=== PATIENT | female | born 1955 | race Caucasian/White ===

== ENCOUNTER 2018-05-31 11:28 | Day surgery (SDC) | payer BC ==
[~2018-05-31 11:28] MED LIST: Lactated Ringers 1,000 ML IV SCH; Sodium Chloride 0.9% 10 ML Syringe FLUSH PRN; Sodium Chloride 0.9% 2.5 ML Syringe FLUSH PRN
[2018-05-31] MEDS ORDERED: Lidocaine 2% 5 ML SDV ONE (12:32)
[2018-05-31] MEDS ORDERED: fentaNYL 100 MCG/2 ML SDV ONE (12:33)
[2018-05-31] MEDS ORDERED: Midazolam 1 MG/ML 2 ML SDV ONE (12:33)
[2018-05-31] MEDS ORDERED: Propofol 200 MG/20 ML SDV ONE ×2 (12:33→14:06)
--- NOTE | 2018-05-31 12:52 | PCM.PREANE ---
Preanesthetic Assessment - Procedure Proposed Procedure: Colonoscopy - Anesthesia/Transfusion/Family Hx Anesthesia History: Prior Anesthesia Reaction Family History of Anesthesia Reaction: No Transfusion History: No Prior Transfusion(s) Intubation History: Unknown Additional History: Past hx of DVT/PE and developed allergy to heparin used. - Review of Systems General: No Symptoms Pulmonary: No Symptoms, Other (hx of sarcoidosis) Cardiovascular: Other Gastrointestinal: Other (incomplete colonoscopy few years ago) Other: Reports: None - Physical Assessment NPO Status Date: 05/30/18 NPO Status Time: 22:00 O2 Sat by Pulse Oximetry: 94 Respiratory Rate: 16 Vital Signs: Last Vital Signs Temp 97.3 F 05/31/18 12:18 Pulse 85 05/31/18 12:18 Resp 16 05/31/18 12:18 BP 122/82 05/31/18 12:18 Pulse Ox 94 L 05/31/18 12:18 Height: 5 ft 7 in Weight: 274 lb ASA Class: 2 Mental Status: Alert & Oriented x3 Airway Class: Mallampati = 3 (affected by cooperation) Dentition: Reports: Normal Dentition Thyro-Mental Finger Breadths: 3 Mouth Opening Finger Breadths: 3 ROM/Head Extension: Limited/Partial (short neck) Lungs: Clear to Auscultation, Normal Respiratory Effort Cardiovascular: Regular Rate, Regular Rhythm, No Murmurs - Allergies Allergies/Adverse Reactions: Allergies Allergy/AdvReac Type Severity Reaction Status Date / Time heparin Allergy Hives Verified 05/26/18 14:22 bronchial dilator Allergy Cardiac Uncoded 05/26/18 14:22 Arrest - Blood Blood Available: No Product(s) Available: None - Anesthesia Plan Pre-Op Medication Ordered: None - Acknowledgements Anesthesia Type Planned: MAC Pt an Appropriate Candidate for the Planned Anesthesia: Yes Alternatives and Risks of Anesthesia Discussed w Pt/Guardian: Yes Pt/Guardian Understands and Agrees with Anesthesia Plan: Yes PreAnesthesia Questionnaire HEENT History: Reports: Allergic Rhinitis, Other (See Below) Other HEENT History: wears glasses Cardiovascular History: Reports: Blood Clots/VTE/DVT, Other (See Below) Other Cardiovascular History: hx of rheumatic fever, hx of DVT and PE during - took heparin for 2 years Respiratory History: Reports: Sleep Apnea, Other (See Below) Other Respiratory History: hx of Sarcoidosis- in remission- has "shadowing" on chest xray, possibly scar tissue hx of sleep apnea- occasionally uses CPAP Gastrointestinal History: Reports: GERD, Hiatal Hernia [employer] OPERATOR History: Reports: Neurological History: Reports: Migraines Psychiatric History: Reports: Anxiety, Depression Endocrine/Metabolic History: Reports: Obesity/BMI 30+, Other (See Below) Other Endocrine/Metabolic History: hx of hypoglycemia- takes metformin to stabilize blood sugar Hematologic History: Reports: Anemia, Other (See Below) Other Hematologic History: hx of Thalassemia minor - Past Surgical History HEENT Surgical History: Reports: Eye Surgery Other HEENT Surgeries/Procedures: strabismus surgery x5 GI Surgical History: Reports: Appendectomy, Colonoscopy Female Surgical History: Reports: Other (See Below) Other Female Surgeries/Procedures: laparoscopy for removal of ovarian cyst Musculoskeletal Surgical History: Reports: Arthroscopic Knee, Other (See Below) Other Musculoskeletal Surgeries/Procedures:: hx of subclavicular bx - SUBSTANCE USE Smoking Status *Q: Former Smoker Tobacco Use Within Last Twelve Months: No Recreational Drug Use History: No - HOME MEDS Home Medications: Home Meds Furosemide 20 mg PO DAILY 05/26/18 [History] Hydrochlorothiazide [Microzide] 12.5 mg PO DAILY 05/26/18 [History] buPROPion HCl [Wellbutrin Xl] 300 mg PO DAILY 05/26/18 [History] metFORMIN HCl [Metformin HCl ER] 500 mg PO BIDMEALS 05/26/18 [History] - CURRENT (IN HOUSE) MEDS Current Meds: Current Medications Lactated Ringer's (Ringers, Lactated) 1,000 mls @ 125 mls/hr IV ASDIRECTED [facility] Last Admin: 05/31/18 12:23 Dose: 125 mls/hr Sodium Chloride (Saline Flush) 10 ml FLUSH ASDIRECTED PRN PRN Reason: Keep Vein Open Sodium Chloride (Saline Flush) 2.5 ml FLUSH ASDIRECTED PRN PRN Reason: Keep Vein Open Sodium Chloride (Saline Flush) 10 ml FLUSH ASDIRECTED PRN PRN Reason: Keep Vein Open Sodium Chloride (Saline Flush) 2.5 ml FLUSH ASDIRECTED PRN PRN Reason: Keep Vein Open Discontinued Medications Fentanyl (Sublimaze) Confirm Administered Dose 100 mcg .ROUTE .STK-MED ONE Stop: 05/31/18 12:34 Lidocaine (Xylocaine-Mpf 2%) Confirm Administered Dose 10 ml .ROUTE .STK-MED ONE Stop: 05/31/18 12:33 Midazolam HCl (Versed 1 Mg/Ml) Confirm Administered Dose 2 mg .ROUTE .STK-MED ONE Stop: 05/31/18 12:34 Propofol (Diprivan 20 Ml) Confirm Administered Dose 400 mg .ROUTE .STK-MED ONE Stop: 05/31/18 12:34
--- NOTE | 2018-05-31 14:17 | PCM.OPNOTE ---
- General Post-Op/Procedure Note Date of Surgery/Procedure: 05/31/18 Operative Procedure(s): colonoscopy Findings: fair to poor prep. normal colonoscopy Pre Op Diagnosis: history of colon polyps Post-Op Diagnosis: same Anesthesia Technique: MAC Primary Surgeon: Lindsay Benitez Condition: Good
--- NOTE | 2018-05-31 14:27 | PCM.POSTAN ---
POST ANESTHESIA ASSESSMENT - MENTAL STATUS Mental Status: Alert - RESPIRATORY Respiratory Status: Respiratory Rate WNL - CARDIOVASCULAR CV Status: Pulse Rate WNL - GASTROINTESTINAL GI Status: No Symptoms - POST OP HYDRATION Hydration Status: Adequate & Stable
--- NOTE | 2018-05-31 14:30 | PCM48HPAN ---
Post Anesthesia Note - EVALUATION WITHIN 48HRS OF ANESTHETIC Vital Signs in Normal Range: Yes Patient Participated in Evaluation: Yes Respiratory Function Stable: Yes Airway Patent: Yes Cardiovascular Function Stable: Yes Hydration Status Stable: Yes Pain Control Satisfactory: Yes Nausea and Vomiting Control Satisfactory: Yes Mental Status Recovered: Yes Resp Rate: 17
--- NOTE | 2018-06-01 08:52 | OR ---
SURGEON: JOSE LUIS ALAS MD DATE OF PROCEDURE: 05/31/2018 PREOPERATIVE DIAGNOSIS: History of colon polyps. POSTOPERATIVE DIAGNOSIS: History of colon polyps. PROCEDURE PERFORMED: Diagnostic colonoscopy. ANESTHESIA: MAC. INSTRUMENT USED: Olympus colonoscope. EXTENT OF EXAM: To the cecum. PREPARATION: Fair to poor. LIMITATIONS: Liquid stool in colon. INDICATIONS: The patient is a 62-year-old female, who underwent a screening colonoscopy last year. This was limited by a poor prep. Her previous endoscopist recommended a 1-year followup because 3 tubular adenomas were found within the colon. The patient and I discussed the need for repeat colonoscopy. I placed her on a 2- day prep. We discussed the procedure, expected perioperative course, and risks including bleeding, infection, or damage to surrounding structures including perforation. The patient verbalized understanding and wishes to proceed. PROCEDURE IN DETAIL: The patient was brought to the endoscopy suite and placed in the left lateral decubitus position. A time-out was completed verifying the patient's name, age, date of , allergies, and procedure to be performed. Monitored anesthesia care was induced, and continuous oxygen was provided via nasal cannula throughout the procedure. After adequate sedation was achieved, a digital rectal exam was performed. This exam was within normal limits. A well- lubricated colonoscope was inserted in the rectum and advanced under direct visualization to the level of the cecum. This was somewhat difficult, given that the patient had a large amount of brown liquid stool within the colon. The cecum was identified by both visual and anatomic landmarks. A photograph was taken of the cecal cap; however, I was unable to retroflex the scope safely within the cecum. The scope was then fully withdrawn while examining the color, texture, anatomy, and integrity of the mucosa from the cecum to the anal canal. A large amount of irrigation was used to clear the liquid stool from the patient's colon. She is noted to have nut seeds and vegetable matter within the stool. After copious amounts of irrigation, I was able to adequately visualize the majority of the colonic wall. There was no evidence of any pathology. The scope was brought into the rectum and retroflexed to allow visualization of the anal canal opening. This appeared normal, and a photograph was taken. The scope was then straightened out and fully withdrawn. The cecum to anus time was 7 minutes. The patient tolerated the procedure well and was transferred to the PACU in stable condition. ENDOSCOPIC DIAGNOSIS: Normal colonoscopy. RECOMMENDATIONS: Overall, the patient's prep was fair to poor. However, I was able to irrigate enough to get good visualization of the majority of the colon. I will have the patient follow up in clinic in 5 years for repeat colonoscopy. She will have to undergo a 2-day colonic prep again with diet modification the week before her next colonoscopy. NELSON KENT /[id number]
== END 2018-05-31 15:10 | disposition home or self-care (01) ==
LOC: MW.SDS 11:28
PROVIDERS: ATTEND Surgery
DX: Z09 Encounter for follow-up examination after completed treatment for conditions other than malignant neoplasm (principal); K21.9 Gastro-esophageal reflux disease without esophagitis; E66.01 Morbid (severe) obesity due to excess calories; Z68.41 Body mass index [BMI] 40.0-44.9, adult; F32.9 Major depressive disorder, single episode, unspecified; Z86.010 Personal history of colon polyps; Z87.891 Personal history of nicotine dependence; Z79.84 Long term (current) use of oral hypoglycemic drugs; Z79.899 Other long term (current) drug therapy; G47.30 Sleep apnea, unspecified; Z88.8 Allergy status to other drugs, medicaments and biological substances
CPT/HCPCS: 45378; J2250; J2704; J3010; J7120

== ENCOUNTER 2020-07-04 19:54 | Emergency (ER) | payer BC ==
--- NOTE | 2020-07-04 20:17 | EDM.PDOC ---
ED HPI GENERAL MEDICAL PROBLEM - General Stated Complaint: SUTURES REMOVAL Time Seen by Provider: 07/04/20 20:14 - History of Present Illness INITIAL COMMENTS - FREE TEXT/NARRATIVE: 64-year-old female who had a mechanical trip and fall at a horse show 5 days ago sustained a laceration to the lateral left eyebrow presented at [facility] CT scan of the brain was negative tetanus was within the last 10 years no fevers no chills patient otherwise feels well. - Related Data Allergies Allergy/AdvReac Type Severity Reaction Status Date / Time heparin Allergy Hives Verified 05/26/18 14:22 bronchial dilator Allergy Cardiac Uncoded 05/26/18 14:22 Arrest Home Meds: Home Meds Furosemide 20 mg PO DAILY 05/26/18 [History] buPROPion HCL [Wellbutrin Xl] 300 mg PO DAILY 05/26/18 [History] hydroCHLOROthiazide [Microzide] 12.5 mg PO DAILY 05/26/18 [History] metFORMIN HCl [Metformin ER Osmotic] 500 mg PO BIDMEALS 05/26/18 [History] Past Medical History HEENT History: Reports: Allergic Rhinitis, Other (See Below) Other HEENT History: wears glasses Cardiovascular History: Reports: Blood Clots/VTE/DVT, Other (See Below) Other Cardiovascular History: hx of rheumatic fever, hx of DVT and PE during - took heparin for 2 years Respiratory History: Reports: Sleep Apnea, Other (See Below) Other Respiratory History: hx of Sarcoidosis- in remission- has "shadowing" on chest xray, possibly scar tissue hx of sleep apnea- occasionally uses CPAP Gastrointestinal History: Reports: GERD, Hiatal Hernia [employer]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: Neurological History: Reports: Migraines Psychiatric History: Reports: Anxiety, Depression Endocrine/Metabolic History: Reports: Obesity/BMI 30+, Other (See Below) Other Endocrine/Metabolic History: hx of hypoglycemia- takes metformin to stabilize blood sugar Hematologic History: Reports: Anemia, Other (See Below) Other Hematologic History: hx of Thalassemia minor - Past Surgical History HEENT Surgical History: Reports: Eye Surgery Other HEENT Surgeries/Procedures: strabismus surgery x5 GI Surgical History: Reports: Appendectomy, Colonoscopy Female Surgical History: Reports: Other (See Below) Other Female Surgeries/Procedures: laparoscopy for removal of ovarian cyst Musculoskeletal Surgical History: Reports: Arthroscopic Knee, Other (See Below) Other Musculoskeletal Surgeries/Procedures:: hx of subclavicular bx ED ROS GENERAL - Review of Systems Review Of Systems: See Below Free Text/Narrative/Comment: General: No fever. Skin: Per HPI Neurologic: No headache. ED EXAM, GENERAL - Physical Exam Exam: See Below Free Text/Narrative:: General Appearance: No acute distress, appears comfortable Skin: Well approximated well-healed linear laceration just superior to the lateral portion of the left eyebrow that is been closed with six 6-0 Prolene sutures no swelling no erythema no drainage no signs of infection HEENT: Normocephalic/atraumatic, sclera anicteric, mucous membranes moist Neck: Normal range of motion Psychiatric: Appropriate, cooperative Departure - Departure Time of Disposition: 20:16 Disposition: Home, Self-Care 01 Condition: Good Clinical Impression: Visit for suture removal - Discharge Information *PRESCRIPTION DRUG MONITORING PROGRAM REVIEWED*: Not Applicable *COPY OF PRESCRIPTION DRUG MONITORING REPORT IN PATIENT GABO: Not Applicable Instructions: Suture Removal, Care After Additional Instructions: The following information is given to patients seen in the emergency department who are being discharged to home. This information is to outline your options for follow-up care. We provide all patients seen in our emergency department with a follow-up referral. The need for follow-up, as well as the timing and circumstances, are variable depending upon the specifics of your emergency department visit. If you don't have a primary care physician on staff, we will provide you with a referral. We always advise you to contact your personal physician following an emergency department visit to inform them of the circumstance of the visit and for follow-up with them and/or the need for any referrals to a consulting specialist. The emergency department will also refer you to a specialist when appropriate. This referral assures that you have the opportunity for follow-up care with a specialist. All of these measure are taken in an effort to provide you with optimal care, which includes your follow-up. Under all circumstances we always encourage you to contact your private physician who remains a resource for coordinating your care. When calling for follow-up care, please make the office aware that this follow-up is from your recent emergency room visit. If for any reason you are refused follow-up, please contact the [facility] Department at and asked to speak to the emergency department charge nurse. - Assessment/Plan Assessment:: 64-year-old female presenting at the appropriate time for suture removal wound without signs of infection sutures to be removed by nursing.
== END 2020-07-04 20:33 | disposition home or self-care (01) ==
LOC: MW.ED 19:54
DX: S01.112D Laceration without foreign body of left eyelid and periocular area, subsequent encounter (principal); E66.9 Obesity, unspecified; F32.9 Major depressive disorder, single episode, unspecified; Z79.84 Long term (current) use of oral hypoglycemic drugs; Z79.899 Other long term (current) drug therapy; Z88.8 Allergy status to other drugs, medicaments and biological substances; Z68.41 Body mass index [BMI] 40.0-44.9, adult; W01.0XXD Fall on same level from slipping, tripping and stumbling without subsequent striking against object, subsequent encounter
CPT/HCPCS: 99281

== ENCOUNTER 2021-01-27 02:37 | Emergency (ER) | payer BC ==
[2021-01-27] MEDS ORDERED: Ondansetron 4 MG/2 ML SDV IVPUSH ONE (03:25)
[2021-01-27] MEDS ORDERED: Sodium Chloride 0.9% 2.5 ML Syringe FLUSH PRN (03:25)
[2021-01-27] MEDS ORDERED: Sodium Chloride 0.9% 10 ML Syringe FLUSH PRN (03:25)
[2021-01-27] MEDS ORDERED: fentaNYL 50 MCG/ML SDV IVPUSH ONE (03:25)
[2021-01-27] MEDS ORDERED: Sodium Chloride 0.9% 1,000 ML IV ONE (03:25)
[2021-01-27] MEDS ORDERED: Magnesium Citrate Solution 296 ML Bottle PO ONE (03:26)
[2021-01-27] MEDS ORDERED: Bisacodyl 10 MG Supp RECTAL STA (03:26)
[2021-01-27] MEDS ORDERED: Bisacodyl 5 MG Tab PO ONE (03:27)
[2021-01-27 03:30] LABS: CARBON DIOXIDE,CO2 27.7 mmol/L (21.0-32.0); POTASSIUM,K 4.4 mmol/L (3.5-5.1)
[2021-01-27 03:43] LABS: LIPASE 204 U/L (73-393)
--- NOTE | 2021-01-27 04:46 | CT ---
INDICATION: Left upper quadrant pain. COMPARISON: CT of the abdomen and pelvis without contrast from 09/24/2017 TECHNIQUE: CT examination of the abdomen and pelvis was performed without contrast enhancement using 3 mm thick axial sections from the lung bases through the pubic symphysis. Oral contrast was not administered. Please note that all CT scans at this facility use dose modulation, iterative reconstruction, and/or weight-based dosing when appropriate to reduce radiation dose to as low as reasonably achievable. FINDINGS: In the abdomen, the unenhanced liver shows no change in a tiny calcified granuloma in the right lobe and is otherwise normal in appearance. The previously seen mild fatty infiltration is no longer evident. The spleen, pancreas, and adrenals are normal in appearance. The unenhanced kidneys are normal in appearance. The gallbladder is normal in appearance. The abdominal aorta is normal in caliber with no sign of dilatation. There is no sign of retroperitoneal mass or adenopathy. The stomach, loops of small bowel, and colon in the abdomen are normal in appearance. Again seen is a stable small fat containing periumbilical hernia. In the pelvis, the appendix is nonvisualized, but there is no sign of an inflammatory process in the area of the appendix. The loops of small bowel and colon in the pelvis are normal in appearance. The uterus and adnexal regions are normal in appearance. The urinary bladder is normal in appearance. There is no sign of pelvic or inguinal mass or adenopathy. There is no sign of free air or free fluid in the abdomen or pelvis. The lung bases are clear. There are moderate L1 and mild T12 compression fractures. The L1 compression fracture is unchanged. The T12 compression fracture is new. There are stable moderate endplate fractures adjacent to the T12-L1 disc space. There is moderate L1-2 and L2-3 disc degenerative disease. There is mild scoliosis of the thoracolumbar spine convex towards the left. IMPRESSION: Nothing seen to explain the patient`s left upper quadrant pain. Normal appearance of the stomach, pancreas, and left urinary system. CT of the abdomen shows resolution of previously seen mild fatty infiltration of the liver. Normal CT of the pelvis without contrast. Please note that all CT scans at this facility use dose modulation, iterative reconstruction, and/or weight-based dosing when appropriate to reduce radiation dose to as low as reasonably achievable. Dictated by Jeronimo Marti MD @ Jan 27 2021 4:35AM Signed by Dr. Jeronimo Marti @ Jan 27 2021 4:43AM
--- NOTE | 2021-01-27 05:06 | EDM.PDOC ---
ED HPI GENERAL MEDICAL PROBLEM - General Chief Complaint: Abdominal Pain Stated Complaint: SEVERE ABDOMINAL PAIN Time Seen by Provider: 01/27/21 02:50 - History of Present Illness INITIAL COMMENTS - FREE TEXT/NARRATIVE: HISTORY AND PHYSICAL: History of present illness: This is a 65-year-old female with a history significant for sarcoidosis who presents ER today secondary to severe left upper quadrant abdominal discomfort that started earlier this evening. Patient reports that she has not had a bowel movement in approximately 10 days except for a small pellet that came out earlier today. Patient denies any recent fevers, shakes, chills. Patient reports nausea with no vomiting or diarrhea. Patient denies any dysuria, frequency, urgency. Patient has any chest pain or shortness of breath. Patient reports normal p.o. intake. Patient reports she is taken 1 bottle of magnesium citrate at home without any BM. Patient reports that she feels her discomfort she is experiencing secondary to constipation. Review of systems: As per history of present illness and below otherwise all systems reviewed and negative. Past medical history: As per history of present illness and as reviewed below otherwise noncontributor y. Surgical history: As per history of present illness and as reviewed below otherwise noncontributory. Social history: No reported history of drug or alcohol abuse. Family history: As per history of present illness and as reviewed below otherwise noncontributory. Physical exam: This patient was seen and evaluated during the 2019 SARS-CoV-2 novel coronavirus pandemic period. Community viral transmission is ongoing at time of this encounter and the emergency department is operating under pandemic response procedures. Constitutional: Patient is oriented to person, place, and time. Appears well- developed and well-nourished. No distress. HEENT: Moist mucous membranes Head: Normocephalic and atraumatic Eyes: Right eye exhibits no discharge. Left eye exhibits no discharge. No sc leral icterus Neck: Normal range of motion. No tracheal deviation present. Cardiovascular: Normal rate and regular rhythm. Pulmonary: Effort normal, no respiratory distress. Abd: Soft, nondistended, no rebound/guarding, no psoas or obturator signs, no tenderness at Mcberney's point, no Nelson's sign. Pt does not present with an exam that would be consistent with an acute surgical abdomen at this time, tenderness palpation midepigastric and left upper quadrant. Musculoskeletal: Normal range of motion Neurologic: Alert and oriented to person, place and time. Skin: [place], warm and dry. Psychiatric: Normal mood and affect. Behavior is normal. Judgment and thought content normal. Nursing note and vital signs have been reviewed Diagnostics: CBC, CMP within normal limits. CT abdomen pelvis reveals no significant abnormalities to explain her discomfort. Therapeutics: NSS x1 L Zofran 4 mg IV, fentanyl IV Dulcolax suppository/Dulcolax p.o./mag citrate 1 bottle Assessment and plan: This is a 65-year-old female who presents ER today complaining of abdominal pain greatest in the upper quadrants left greater than right. Patient denies any recent fevers, shakes, chills. During the course of the patient's evaluation for abdominal pain, kidney stone, pancreatitis, cholecystitis, diverticulitis, abdominal aortic aneurysm, myocardial infarction, ischemic bowel, ruptured pepti c ulcer, ruptured viscus, UTI,and appendicitis as well as other causes of abdominal pain have been considered. Patient CT scan has been unremarkable. Patient's labs have been unremarkable. Patient has been given cathartics without significant bowel movement. After receiving the fentanyl and Zofran patient does look much better and she reports her pain is significantly improved. Etiology of the patient's pain is unclear however at this time she does not present with signs that would be consistent with an acute surgical abdomen. Patient will be discharged home with instructions to follow-up with her PCP in the next 1 to 2 days. Reassessment at the time of disposition demonstrates that the patient is in no acute distress. The patient has remained stable throughout the entire ED visit and is without objective evidence for acute process requiring urgent intervention or hospitalization. The patient is stable for discharge, counseling is provided as documented above, discussed symptomatic treatment and specific conditions for return. I have spoken with the patient/caregiver and discussed todays findings, in addition to providing specific details for the plan of care. Questions are answered and there is agreement with the plan. Definitive disposition and diagnosis as appropriate pending reevaluation and review of above. left abdomen Pain Score (Numeric/FACES): 9 - Related Data Allergies Allergy/AdvReac Type Severity Reaction Status Date / Time heparin Allergy Hives Verified 01/27/21 02:48 bronchial dilator Allergy Cardiac Uncoded 01/27/21 02:48 Arrest Home Meds: Home Meds Furosemide 20 mg PO DAILY 05/26/18 [History] buPROPion HCL [Wellbutrin Xl] 300 mg PO DAILY 05/26/18 [History] hydroCHLOROthiazide [Microzide] 12.5 mg PO DAILY 05/26/18 [History] Naproxen [Naprosyn] 500 mg PO Q12HR PRN #30 tab 01/27/21 [Rx] Past Medical History HEENT History: Reports: Allergic Rhinitis, Other (See Below) Other HEENT History: wears glasses Cardiovascular History: Reports: Blood Clots/VTE/DVT, Other (See Below) Other Cardiovascular History: hx of rheumatic fever, hx of DVT and PE during - took heparin for 2 years Respiratory History: Reports: Sleep Apnea, Other (See Below) Other Respiratory History: hx of Sarcoidosis- in remission- has "shadowing" on chest xray, possibly scar tissue hx of sleep apnea- occasionally uses CPAP Gastrointestinal History: Reports: GERD, Hiatal Hernia [employer] History: Reports: Neurological History: Reports: Migraines Psychiatric History: Reports: Anxiety, Depression Endocrine/Metabolic History: Reports: Obesity/BMI 30+, Other (See Below) Other Endocrine/Metabolic History: hx of hypoglycemia- takes metformin to stabilize blood sugar Hematologic History: Reports: Anemia, Other (See Below) Other Hematologic History: hx of Thalassemia minor - Infectious Disease History Infectious Disease History: Reports: Chicken Pox - Past Surgical History HEENT Surgical History: Reports: Eye Surgery Other HEENT Surgeries/Procedures: strabismus surgery x5 GI Surgical History: Reports: Appendectomy, Colonoscopy Female Surgical History: Reports: Other (See Below) Other Female Surgeries/Procedures: laparoscopy for removal of ovarian cyst Musculoskeletal Surgical History: Reports: Arthroscopic Knee, Other (See Below) Other Musculoskeletal Surgeries/Procedures:: hx of subclavicular bx Social & Family History - Tobacco Use Tobacco Use Status *Q: Never Tobacco User - Recreational Drug Use Recreational Drug Use: No ED ROS GENERAL - Review of Systems Review Of Systems: See Below ED EXAM, GENERAL - Physical Exam Exam: See Below Course - Vital Signs Last Recorded V/S: Last Vital Signs Temp 97.3 F 01/27/21 06:48 Pulse 82 01/27/21 06:48 Resp 19 01/27/21 02:48 BP 175/83 H 01/27/21 06:48 Pulse Ox 97 01/27/21 06:48 - Orders/Labs/Meds Orders: Active Orders 24 hr Category Date Time Status Saline Lock Insert [OM.PC] Stat Oth 01/27/21 03:25 Ordered Labs: Laboratory Tests 01/27/21 01/27/21 01/27/21 Range/Units 02:54 02:54 02:54 WBC 6.96 (4.0-11.0) K/uL RBC 5.17 (4.30-5.90) M/uL Hgb 13.4 (12.0-16.0) g/dL Hct 42.0 (36.0-46.0) % MCV 81.2 (80.0-98.0) fL MCH 25.9 L (27.0-32.0) pg MCHC 31.9 (31.0-37.0) g/dL RDW Std Deviation 43.6 (28.0-62.0) fl RDW Coeff of Justin 15 (11.0-15.0) % Plt Count 330 (150-400) K/uL MPV 9.70 (7.40-12.00) fL Neut % (Auto) 51.1 (48.0-80.0) % Lymph % (Auto) 32.5 (16.0-40.0) % Jay % (Auto) 12.6 (0.0-15.0) % Eos % (Auto) 3.4 (0.0-7.0) % Baso % (Auto) 0.4 (0.0-1.5) % Neut # (Auto) 3.6 (1.4-5.7) K/uL Lymph # (Auto) 2.3 (0.6-2.4) K/uL Jay # (Auto) 0.9 H (0.0-0.8) K/uL Eos # (Auto) 0.2 (0.0-0.7) K/uL Baso # (Auto) 0.0 (0.0-0.1) K/uL Nucleated RBC % 0.0 /100WBC Nucleated RBCs # 0 K/uL Sodium 138 (136-145) mmol/L Potassium 4.4 (3.5-5.1) mmol/L Chloride 103 (98-107) mmol/L Carbon Dioxide 27.7 (21.0-32.0) mmol/L BUN 16 (7.0-18.0) mg/dL Creatinine 1.1 H (0.6-1.0) mg/dL Est Cr Clr Drug Dosing 50.24 mL/min Estimated GFR (MDRD) 50.0 ml/min Glucose 116 H (74-106) mg/dL Calcium 8.3 L (8.5-10.1) mg/dL Total Bilirubin 0.2 (0.2-1.0) mg/dL AST 19 (15-37) IU/L ALT 26 (14-63) IU/L Alkaline Phosphatase 104 (46-116) U/L Troponin I < 0.050 (0.000-0.056) ng/mL Total Protein 6.7 (6.4-8.2) g/dL Albumin 3.3 L (3.4-5.0) g/dL Globulin 3.4 (2.6-4.0) g/dL Albumin/Globulin Ratio 1.0 (0.9-1.6) Lipase 204 (73-393) U/L Urine Color Urine Appearance Urine pH (5.0-8.0) Ur Specific [place] (1.001-1.035) Urine Protein (NEGATIVE) mg/dL Urine Glucose (UA) (NEGATIVE) mg/dL Urine Ketones (NEGATIVE) mg/dL Urine Occult Blood (NEGATIVE) Urine Nitrite (NEGATIVE) Urine Bilirubin (NEGATIVE) Urine Urobilinogen (<2.0) EU/dL Ur Leukocyte Esterase (NEGATIVE) Urine RBC (0-2/HPF) Urine WBC (0-5/HPF) Ur Epithelial Cells (NONE-FEW) Urine Bacteria (NEGATIVE) 01/27/21 Range/Units 05:20 WBC (4.0-11.0) K/uL RBC (4.30-5.90) M/uL Hgb (12.0-16.0) g/dL Hct (36.0-46.0) % MCV (80.0-98.0) fL MCH (27.0-32.0) pg MCHC (31.0-37.0) g/dL RDW Std Deviation (28.0-62.0) fl RDW Coeff of Justin (11.0-15.0) % Plt Count (150-400) K/uL MPV (7.40-12.00) fL Neut % (Auto) (48.0-80.0) % Lymph % (Auto) (16.0-40.0) % Jay % (Auto) (0.0-15.0) % Eos % (Auto) (0.0-7.0) % Baso % (Auto) (0.0-1.5) % Neut # (Auto) (1.4-5.7) K/uL Lymph # (Auto) (0.6-2.4) K/uL Jay # (Auto) (0.0-0.8) K/uL Eos # (Auto) (0.0-0.7) K/uL Baso # (Auto) (0.0-0.1) K/uL Nucleated RBC % /100WBC Nucleated RBCs # K/uL Sodium (136-145) mmol/L Potassium (3.5-5.1) mmol/L Chloride (98-107) mmol/L Carbon Dioxide (21.0-32.0) mmol/L BUN (7.0-18.0) mg/dL Creatinine (0.6-1.0) mg/dL Est Cr Clr Drug Dosing mL/min Estimated GFR (MDRD) ml/min Glucose (74-106) mg/dL Calcium (8.5-10.1) mg/dL Total Bilirubin (0.2-1.0) mg/dL AST (15-37) IU/L ALT (14-63) IU/L Alkaline Phosphatase (46-116) U/L Troponin I (0.000-0.056) ng/mL Total Protein (6.4-8.2) g/dL Albumin (3.4-5.0) g/dL Globulin (2.6-4.0) g/dL Albumin/Globulin Ratio (0.9-1.6) Lipase (73-393) U/L Urine Color YELLOW Urine Appearance SLT CLOUDY Urine pH 5.5 (5.0-8.0) Ur Specific [place] 1.020 (1.001-1.035) Urine Protein NEGATIVE (NEGATIVE) mg/dL Urine Glucose (UA) NEGATIVE (NEGATIVE) mg/dL Urine Ketones NEGATIVE (NEGATIVE) mg/dL Urine Occult Blood NEGATIVE (NEGATIVE) Urine Nitrite NEGATIVE (NEGATIVE) Urine Bilirubin NEGATIVE (NEGATIVE) Urine Urobilinogen 0.2 (<2.0) EU/dL Ur Leukocyte Esterase SMALL H (NEGATIVE) Urine RBC 0-1 (0-2/HPF) Urine WBC 0-2 (0-5/HPF) Ur Epithelial Cells FEW (NONE-FEW) Urine Bacteria FEW (NEGATIVE) Meds: Medications Discontinued Medications Generic Name Dose Route Start Last Admin Trade Name Freq PRN Reason Stop Dose Admin Bisacodyl 20 mg 01/27/21 03:26 01/27/21 04:05 Bisacodyl 10 Mg Supp RECTAL 01/27/21 03:27 20 mg ONETIME STA Administration Bisacodyl 20 mg 01/27/21 03:27 01/27/21 04:07 Bisacodyl 5 Mg Tab PO 01/27/21 03:28 20 mg ONETIME ONE Administration Fentanyl 50 mcg 01/27/21 03:25 01/27/21 04:05 Fentanyl 50 Mcg/Ml Sdv IVPUSH 01/27/21 03:26 50 mcg ONETIME ONE Administration Sodium Chloride 1,000 mls @ 999 mls/hr 01/27/21 03:25 01/27/21 04:06 Normal Saline IV 01/27/21 04:25 999 mls/hr .Bolus ONE Administration Magnesium Citrate 296 ml 01/27/21 03:26 01/27/21 04:05 Magnesium Citrate Solution 296 Ml Bottle PO 01/27/21 03:27 296 ml ONETIME ONE Administration Ondansetron HCl 4 mg 01/27/21 03:25 01/27/21 04:05 Ondansetron 4 Mg/2 Ml Sdv IVPUSH 01/27/21 03:26 4 mg ONETIME ONE Administration Sodium Chloride 10 ml 01/27/21 03:25 01/27/21 04:08 Sodium Chloride 0.9% 10 Ml Syringe FLUSH 10 ml ASDIRECTED PRN Administration Keep Vein Open Sodium Chloride 2.5 ml 01/27/21 03:25 01/27/21 04:08 Sodium Chloride 0.9% 2.5 Ml Syringe FLUSH 2.5 ml ASDIRECTED PRN Administration Keep Vein Open Departure - Departure Time of Disposition: 03:00 Disposition: Home, Self-Care 01 Condition: Good Clinical Impression: Abdominal pain, Constipation - Discharge Information Prescriptions: Naproxen [Naprosyn] 500 mg PO Q12HR PRN #30 tab PRN Reason: Pain Instructions: Chronic Constipation, Abdominal Pain, Adult, [id number] Referrals: Cristina Gant DO [Primary Care Provider] - Forms: ED Department Discharge Additional Instructions: You were seen and evaluated in the ER today secondary to abdominal pain and discomfort. Your labs were all normal. The CT scan of the abdomen pelvis did not reveal any acute pathology. You do look like you have a compression fracture at the level of T12-L1. Please make an appointment to follow-up with your family doctor for reevaluation of your abdominal pain. Please return to the ER if your pain worsens or if you develop any new or conc erning symptoms. You will be given a prescription for Naprosyn to assist with your pain and discomfort. The following information is given to patients seen in the emergency department who are being discharged to home. This information is to outline your options for follow-up care. We provide all patients seen in our emergency department with a follow-up referral. The need for follow-up, as well as the timing and circumstances, are variable depending upon the specifics of your emergency department visit. If you don't have a primary care physician on staff, we will provide you with a referral. We always advise you to contact your personal physician following an emergency department visit to inform them of the circumstance of the visit and for follow-up with them and/or the need for any referrals to a consulting specialist. The emergency department will also refer you to a specialist when appropriate. This referral assures that you have the opportunity for follow-up care with a specialist. All of these measure are taken in an effort to provide you with optimal care, which includes your follow-up. Under all circumstances we always encourage you to contact your private physician who remains a resource for coordinating your care. When calling for follow-up care, please make the office aware that this follow-up is from your recent emergency room visit. If for any reason you are refused follow-up, please contact the [facility] Emergency Department at and asked to speak to the emergency department charge nurse. [facility] [address] [place] [id number] [id number] Sepsis Event Note (ED) - Evaluation Sepsis Screening Result: No Definite Risk - My Orders Last 24 Hours: My Active Orders 01/27/21 03:25 Saline Lock Insert [OM.PC] Stat - Assessment/Plan Last 24 Hours: My Active Orders 01/27/21 03:25 Saline Lock Insert [OM.PC] Stat
== END 2021-01-27 06:48 | disposition home or self-care (01) ==
LOC: MW.ED 02:37
DX: K59.00 Constipation, unspecified (principal); E66.9 Obesity, unspecified; Z68.42 Body mass index [BMI] 45.0-49.9, adult; Z88.8 Allergy status to other drugs, medicaments and biological substances; Z79.899 Other long term (current) drug therapy
CPT/HCPCS: 36415; 74176; 80053; 81001; 83690; 84484; 85025; 96374; 96375; 99284; A9270; J2405; J3010; J7030; 99283

== ENCOUNTER 2021-07-09 19:46 | Emergency (ER) | payer BC ==
[2021-07-09 21:10] LABS: CORONAVIRUS COVID-19 NAA POSITIVE (NEGATIVE); INFLUENZA A NAA NEGATIVE (NEGATIVE); INFLUENZA B NAA NEGATIVE (NEGATIVE)
--- NOTE | 2021-07-09 21:36 | CR ---
HISTORY: Cough. COMPARISON: 09/01/2016. FINDINGS: PA and lateral views of the chest. Stable minimal linear scar atelectasis in the left lung. The lungs are otherwise. No evidence for pneumonia. Heart size and pulmonary vascularity within normal limits. No pleural effusion. Mild degenerative endplate changes are noted in the spine. Dictated by Daphne Hansen MD @ 07/09/2021 9:34:24 PM (Electronically Signed)
--- NOTE | 2021-07-09 21:40 | EDM.PDOC ---
ED HPI GENERAL MEDICAL PROBLEM - General Chief Complaint: Respiratory Problem Stated Complaint: BODY ACHES, FATIGUE, COUGH Time Seen by Provider: 07/09/21 21:18 - History of Present Illness INITIAL COMMENTS - FREE TEXT/NARRATIVE: HISTORY AND PHYSICAL: History of present illness: This is a 65-year-old female with a history significant for sarcoidosis, diabetes, who presents ER today secondary to generalized malaise, weakness, cough, congestion, headache and concerned that she might have coronavirus. Patient is not vaccinated for coronavirus. Patient denies any fevers. Patient has any shortness of breath. Patient reports nausea with no vomiting or diarrhea. Patient denies any dysuria, frequency, urgency. Patient reports that she has occasional white/yellow productive cough. Patient denies any sore throat or ear pain. Patient denies any known Covid exposures. Patient reports that she works in a cubicle by herself with very little exposure to other people. Patient denies any calf tenderness or swelling. Patient denies any lower extremity edema. Patient denies any hemoptysis. Patient denies any pain to her chest. Patient has any chest pressure. Review of systems: As per history of present illness and below otherwise all systems reviewed and negative. Past medical history: As per history of present illness and as reviewed below otherwise noncontributory. Surgical history: As per history of present illness and as reviewed below otherwise noncontributory. Social history: No reported history of drug abuse. Family history: As per history of present illness and as reviewed below otherwise noncontributory. Physical exam: This patient was seen and evaluated during the 2019 SARS-CoV-2 novel coronavirus pandemic period. Community viral transmission is ongoing at time of this encounter and the emergency department is operating under pandemic response procedures. Constitutional: Patient is oriented to person, place, and time. Appears well- developed and well-nourished. No distress. HEENT: Moist mucous membranes Head: Normocephalic and atraumatic Eyes: Right eye exhibits no discharge. Left eye exhibits no discharge. No scleral icterus Neck: Normal range of motion. No tracheal deviation present. Cardiovascular: Normal rate and regular rhythm. No split S2/RV heave. Pulmonary: Effort normal, no respiratory distress. No wheezing rales or rhonchi. Abdominal: No distention Musculoskeletal: Normal range of motion. No calf tenderness. No Homans' sign. Neurologic: Alert and oriented to person, place and time. Skin: [place], warm and dry. Psychiatric: Normal mood and affect. Behavior is normal. Judgment and thought content normal. Nursing note and vital signs have been reviewed Diagnostics: Chest Xray: Normal cardiac silhouette No infiltrates or effusions identified. No PTX No evidence of acute bony fracture. As interpreted by ER MD: Maddi Influenza A/influenza B negative Coronavirus vaccine test was positive Therapeutics: [] Assessment and plan: 65-year-old female who presents ER today secondary to concern that she might have coronavirus given her symptoms of generalized malaise, cough, chills, body aches and headache. Patient's coronavirus test was positive here in the ED. Patient's pulse oximeter was 98% on room air. Patient has a normal-appearing chest. Patient does not appear to be in any respiratory distress. Patient is not vaccinated for coronavirus. Given that the patient has a BMI of 42, diabetes, sarcoidosis, she would meet criteria for Regeneron therapy. I have given the patient information and she is amenable to getting called in the morning and to obtain the Regeneron infusion. Patient was given precautions regarding returning to the ED if she starts having any increasing shortness of breath. Patient was recommended that she obtain a pulse oximeter so that she can keep a closer eye on her oxygen level to return to the ER if it drops below 90%. Reassessment at the time of disposition demonstrates that the patient is in no acute distress. The patient has remained stable throughout the entire ED visit and is without objective evidence for acute process requiring urgent intervention or hospitalization. The patient is stable for discharge, counseling is provided as documented above, discussed symptomatic treatment and specific conditions for return. I have spoken with the patient/caregiver and discussed todays findings, in addition to providing specific details for the plan of care. Questions are answered and there is agreement with the plan. Definitive disposition and diagnosis as appropriate pending reevaluation and review of above. Left Arm Pain Score (Numeric/FACES): 5 - Related Data Allergies Allergy/AdvReac Type Severity Reaction Status Date / Time heparin Allergy Hives Verified 01/27/21 02:48 bronchial dilator Allergy Cardiac Uncoded 01/27/21 02:48 Arrest Home Meds: Home Meds Furosemide 20 mg PO DAILY 05/26/18 [History] buPROPion HCL [Wellbutrin Xl] 300 mg PO DAILY 05/26/18 [History] hydroCHLOROthiazide [Microzide] 12.5 mg PO DAILY 05/26/18 [History] Naproxen [Naprosyn] 500 mg PO Q12HR PRN #30 tab 01/27/21 [Rx] Phentermine HCl 1 tab PO DAILY 07/09/21 [History] metFORMIN [Glucophage] 2 tab PO DAILY 07/09/21 [History] Past Medical History HEENT History: Reports: Allergic Rhinitis, Other (See Below) Other HEENT History: wears glasses Cardiovascular History: Reports: Blood Clots/VTE/DVT, Other (See Below) Other Cardiovascular History: hx of rheumatic fever, hx of DVT and PE during - took heparin for 2 years Respiratory History: Reports: Sleep Apnea, Other (See Below) Other Respiratory History: hx of Sarcoidosis- in remission- has "shadowing" on chest xray, possibly scar tissue hx of sleep apnea- occasionally uses CPAP Gastrointestinal History: Reports: GERD, Hiatal Hernia [employer] History: Reports: Neurological History: Reports: Migraines Psychiatric History: Reports: Anxiety, Depression Endocrine/Metabolic History: Reports: Obesity/BMI 30+, Other (See Below) Other Endocrine/Metabolic History: hx of hypoglycemia- takes metformin to stabilize blood sugar Hematologic History: Reports: Anemia, Other (See Below) Other Hematologic History: hx of Thalassemia minor - Infectious Disease History Infectious Disease History: Reports: Chicken Pox - Past Surgical History HEENT Surgical History: Reports: Eye Surgery Other HEENT Surgeries/Procedures: strabismus surgery x5 GI Surgical History: Reports: Appendectomy, Colonoscopy Female Surgical History: Reports: Other (See Below) Other Female Surgeries/Procedures: laparoscopy for removal of ovarian cyst Musculoskeletal Surgical History: Reports: Arthroscopic Knee, Other (See Below) Other Musculoskeletal Surgeries/Procedures:: hx of subclavicular bx Social & Family History - Tobacco Use Tobacco Use Status *Q: Never Tobacco User - Caffeine Use Caffeine Use: Reports: Soda - Recreational Drug Use Recreational Drug Use: No ED ROS GENERAL - Review of Systems Review Of Systems: See Below ED EXAM, GENERAL - Physical Exam Exam: See Below Course - Vital Signs Last Recorded V/S: Last Vital Signs Temp 97.4 F 07/09/21 20:16 Pulse 84 07/09/21 21:30 Resp 15 07/09/21 20:16 BP 135/80 09/29/21 20:16 Pulse Ox 96 07/09/21 21:30 - Orders/Labs/Meds Orders: Active Orders 24 hr Category Date Time Status Chest 2V [CR] Stat Exams 07/09/21 19:58 Taken Labs: Laboratory Tests 07/09/21 Range/Units 20:24 Influenza Type A RNA NEGATIVE (NEGATIVE) Influenza Type B RNA NEGATIVE (NEGATIVE) SARS-CoV-2 RNA (RA) POSITIVE H (NEGATIVE) Departure - Departure Time of Disposition: 21:38 Disposition: Home, Self-Care 01 Condition: Good Clinical Impression: COVID-19 virus infection - Discharge Information Instructions: What You Should Know About COVID-19 to Protect Yourself and Others - [facility], 10 Things You Can Do to Manage Your COVID-19 Symptoms at Home - [facility] (04/25/2021), COVID-19: What Your Test Results Mean - [facility] (03/09/2020), COVID-19: Quarantine vs. Isolation - [facility] (09/26/2020) Referrals: Cristina Gant DO [Primary Care Provider] - Additional Instructions: You were seen and evaluated in the ER today secondary to signs and symptoms that were concerning for coronavirus infection. Although your influenza tests were negative, your Covid test was positive here in the ED. Fortunately, your chest x-ray looks normal and your oxygen level is excellent. Given your high risk for coronavirus infection, we will recommend that you obtain Regeneron therapy. This is still under emergency use authorization from the government and is not FDA approved however it has been shown to decrease the need for admission for patients who are at high risk who have Covid infection. You will receive a kellee ne call from the hospital likely tomorrow to schedule you for an infusion as an outpatient. Please obtain a pulse oximeter so that he can keep an eye on your oxygen level. If you start having severe shortness of breath or if your oxygen level should drop below 90%, please return to the ED to be reevaluated. 1. Your COVID-19 screening is positive. That means you do have the coronavirus and you are considered contagious. Your vital signs and oxygen saturation are well enough that you were able to monitor your symptoms at home. Continue to monitor for trouble breathing, new confusion or inability to arouse, bluish lips or face or any of the other symptoms we discussed -if this occurs please return to the emergency room. 2. Please self quarantine over the next 10 days. Inform any persons that you have been in contact with since you started becoming symptomatic that you have tested positive; they should be made aware and take the appropriate steps as needed. 3. You can take NyQuil during the evening to help get a restful night sleep. May alternate Tylenol and ibuprofen as needed for pain and fever management. 4. The [facility] department will be calling you and following up with you. The [place] [facility] Hotline phone number , They are open Wednesday - Wednesday 7am - 7pm. Follow up with your primary care provider for re-evaluation and re-testing after the 10 day quarantine and discuss when you should be seen. The following information is given to patients seen in the emergency department who are being discharged to home. This information is to outline your options for follow-up care. We provide all patients seen in our emergency department with a follow-up referral. The need for follow-up, as well as the timing and circumstances, are variable depending upon the specifics of your emergency department visit. If you don't have a primary care physician on staff, we will provide you with a referral. We always advise you to contact your personal physician following an emergency department visit to inform them of the circumstance of the visit and for follow-up with them and/or the need for any referrals to a consulting specialist. The emergency department will also refer you to a specialist when appropriate. This referral assures that you have the opportunity for follow-up care with a specialist. All of these measure are taken in an effort to provide you with optimal care, which includes your follow-up. Under all circumstances we always encourage you to contact your private physician who remains a resource for coordinating your care. When calling for follow-up care, please make the office aware that this follow-up is from your recent emergency room visit. If for any reason you are refused follow-up, please contact the [facility] Emergency Department at and asked to speak to the emergency department charge nurse. [facility] - Primary Care [address] [place] [id number] [facility] [address] [place] [address] Sepsis Event Note (ED) - Focused Exam Vital Signs: Vital Signs Temp Pulse Resp BP Pulse Ox 07/09/21 21:30 84 96 07/09/21 20:16 97.4 F 86 15 135/80 95 - My Orders Last 24 Hours: My Active Orders 07/09/21 19:58 Chest 2V [CR] Stat - Assessment/Plan Last 24 Hours: My Active Orders 07/09/21 19:58 Chest 2V [CR] Stat
[2021-07-10] MEDS ORDERED: diphenhydrAMINE 50 MG/ML SDV IVPUSH PRN (09:40)
[2021-07-10] MEDS ORDERED: EPINEPHrine 1:10,000 1 MG/10 ML Syringe IM PRN (09:40)
[2021-07-10] MEDS ORDERED: Famotidine 20 MG/2 ML SDV IVPUSH PRN (09:40)
[2021-07-10] MEDS ORDERED: methylPREDNISolone Sodium Succinate 125 MG/2 ML SDV IVPUSH PRN (09:40)
[2021-07-10] MEDS ORDERED: Sodium Chloride 0.9% 10 ML Syringe FLUSH SCH (09:45)
== END 2021-07-09 22:00 | disposition home or self-care (01) ==
LOC: MW.ED 19:46
DX: U07.1 COVID-19 (principal); E66.9 Obesity, unspecified; Z68.41 Body mass index [BMI] 40.0-44.9, adult; Z88.8 Allergy status to other drugs, medicaments and biological substances; Z79.899 Other long term (current) drug therapy
CPT/HCPCS: 0240U; 71046; 99283

== ENCOUNTER 2023-02-05 09:07 | Emergency (ER) | payer BC ==
[2023-02-05] MEDS ORDERED: Sodium Chloride 0.9% 2.5 ML Syringe FLUSH PRN (09:22)
[2023-02-05] MEDS ORDERED: Sodium Chloride 0.9% 10 ML Syringe FLUSH PRN (09:22)
[2023-02-05 10:09] LABS: CARBON DIOXIDE,CO2 29.3 mmol/L (21.0-32.0); POTASSIUM,K 3.7 mmol/L (3.5-5.1)
[2023-02-05] MEDS ORDERED: amLODIPine 2.5 MG Tab PO ONE (10:22)
[2023-02-05] MEDS ORDERED: Ketorolac 30 MG/ML SDV IVPUSH ONE (10:22)
[2023-02-05] MEDS ORDERED: amLODIPine 5 MG Tab PO ONE (10:45)
== END 2023-02-05 11:01 | disposition home or self-care (01) ==
LOC: MW.ED 09:07
DX: R51.9 Headache, unspecified (principal); I10 Essential (primary) hypertension; E66.9 Obesity, unspecified; Z68.42 Body mass index [BMI] 45.0-49.9, adult; Z88.8 Allergy status to other drugs, medicaments and biological substances
CPT/HCPCS: 36415; 70450; 80053; 84484; 85025; 93005; 96374; 99284; A9270; J1885; J3490; 93010; 99283

== ENCOUNTER 2023-04-02 19:55 | Emergency (ER) | payer BC | END 2023-04-02 22:00 | disposition home or self-care (01) | LOC: MW.ED 19:55 | DX: M72.2 Plantar fascial fibromatosis (principal); E66.9 Obesity, unspecified; Z88.8 Allergy status to other drugs, medicaments and biological substances; Z68.42 Body mass index [BMI] 45.0-49.9, adult | CPT/HCPCS: 99282; 99283 ==

== ENCOUNTER 2023-05-21 20:46 | Observation (INO) | payer BC ==
[2023-05-21] MEDS ORDERED: Sodium Chloride 0.9% 10 ML Syringe FLUSH PRN (21:03)
[2023-05-21] MEDS ORDERED: Sodium Chloride 0.9% 2.5 ML Syringe FLUSH PRN (21:03)
[2023-05-21 21:10] LABS: BASOPHILS PERCENT AUTO 0.5 % (0.0-1.5); EOSINOPHILS ABSOLUTE AUTO 0.2 K/uL (0.0-0.7); EOSINOPHILS PERCENT AUTO 2.1 % (0.0-7.0); HEMATOCRIT 40.6 % (36.0-46.0); HEMOGLOBIN 12.9 g/dL (12.0-16.0); LYMPHOCYTES ABSOLUTE AUTO 2.3 K/uL (0.6-2.4); LYMPHOCYTES PERCENT AUTO 29.3 % (16.0-40.0); MEAN CORPUSCULAR HGB CONC 31.8 g/dL (31.0-37.0); MEAN CORPUSCULAR VOLUME 78.5 fL (80.0-98.0); MONOCYTES ABSOLUTE AUTO 0.9 K/uL (0.0-0.8); MONOCYTES PERCENT AUTO 11.6 % (0.0-15.0); NEUTROPHILS ABSOLUTE AUTO 4.4 K/uL (1.4-5.7); NEUTROPHILS PERCENT AUTO 56.5 % (48.0-80.0); NRBC ABSOLUTE 0 K/uL; PLATELET COUNT,PLT 334 K/uL (150-400); RED BLOOD CELL COUNT 5.17 M/uL (4.30-5.90); WHITE BLOOD CELL COUNT,WBC 7.75 K/uL (4.0-11.0)
[2023-05-21 21:22] LABS: INR 0.94 (0.86-1.11)
[2023-05-21] MEDS ORDERED: Ondansetron 4 MG/2 ML SDV IVPUSH ONE (21:27)
[2023-05-21] MEDS ORDERED: diphenhydrAMINE 50 MG/ML SDV IVPUSH ONE (21:27)
[2023-05-21 21:29] LABS: A/G RATIO 0.8 (0.9-1.6); ALBUMIN 3.1 g/dL (3.4-5.0); BILIRUBIN TOTAL 0.4 mg/dL (0.2-1.0); CALCIUM 8.7 mg/dL (8.5-10.1); CARBON DIOXIDE,CO2 30.2 mmol/L (21.0-32.0); CREATININE 1.1 mg/dL (0.6-1.0); EST CRCL DRUG DOSING (CG) 48.92 mL/min; POTASSIUM,K 3.1 mmol/L (3.5-5.1); PROTEIN TOTAL,TP 6.8 g/dL (6.4-8.2)
[2023-05-21] MEDS ORDERED: Potassium Chloride 20 MEQ Tab.ER PO ONE (23:55)
[2023-05-21] MEDS ORDERED: Aspirin 81 MG Tab.Chew PO ONE (23:55)
[2023-05-22 07:58] LABS: CALCIUM 8.4 mg/dL (8.5-10.1); CARBON DIOXIDE,CO2 33.6 mmol/L (21.0-32.0); CREATININE 0.9 mg/dL (0.6-1.0); EST CRCL DRUG DOSING (CG) 59.79 mL/min; POTASSIUM,K 3.1 mmol/L (3.5-5.1)
[2023-05-22] MEDS ORDERED: Potassium Chloride 20 MEQ Tab.ER PO ONE (10:30)
[2023-05-22] MEDS ORDERED: Hydrochlorothiazide 25 MG Tab PO SCH (10:45)
[2023-05-22] MEDS ORDERED: amLODIPine 5 MG Tab PO SCH (10:45)
== END 2023-05-22 12:25 | disposition home or self-care (01) ==
LOC: MW.ED 20:46 → MW.MS 05-22 00:17
PROVIDERS: ADMIT Internal Medicine; ATTEND Internal Medicine
DX: R00.2 Palpitations (principal); R51.9 Headache, unspecified; R07.9 Chest pain, unspecified; I10 Essential (primary) hypertension; G47.30 Sleep apnea, unspecified; K59.09 Other constipation; K21.9 Gastro-esophageal reflux disease without esophagitis; F41.9 Anxiety disorder, unspecified; F32.A Depression, unspecified; E66.9 Obesity, unspecified; Z88.8 Allergy status to other drugs, medicaments and biological substances; Z79.899 Other long term (current) drug therapy; Z86.718 Personal history of other venous thrombosis and embolism
CPT/HCPCS: 36415; 70450; 71045; 80048; 80053; 83735; 83880; 84484; 85025; 85379; 85610; 93005; 93246; 96374; 96375; 99285; A9270; G0378; J1200; J2405; J3490; 93010

== ENCOUNTER 2024-03-02 00:47 | Emergency (ER) | payer BC ==
[2024-03-02] MEDS: Ketorolac 30 MG/ML SDV IVPUSH ONE (01:11)
[2024-03-02] MEDS: Orphenadrine 60 MG/2 ML Inj IV ONE (01:12)
[2024-03-02] MEDS: fentaNYL 50 MCG/ML SDV IVPUSH ONE (04:21)
[2024-03-02] MEDS: Ondansetron 4 MG/2 ML SDV IVPUSH ONE (04:21)
== END 2024-03-02 06:20 | disposition home or self-care (01) ==
LOC: MW.ED 00:47
DX: M54.50 Low back pain, unspecified (principal); I10 Essential (primary) hypertension; E66.9 Obesity, unspecified; Z79.899 Other long term (current) drug therapy; Z88.8 Allergy status to other drugs, medicaments and biological substances
CPT/HCPCS: 72128; 72131; 96374; 96375; 99284; J1885; J2360; J2405; J3010